=== PATIENT | female | born 1980 | race African-American/Black ===

== ENCOUNTER 2016-09-08 05:58 | Day surgery (SDC) | payer OTHER ==
[~2016-09-08] VITALS: Ht 165.1 cm; Wt 77.0 kg
[~2016-09-08 05:58] MED LIST: CHILD ASPIRIN81 M1 PO; FEOSOL325 MG PO; NAPROSYN500 MG PO; PRENATAL TABLE1 EAC3 PO; PRILOSEC OTC20 MG PO; TUMS500 MG PO; ZANTAC150 MG PO; ZOFRAN8 MG PO
[2016-09-08 06:30] LABS: EOSINOPHIL (%) 0.6 % (0-5); EOSINOPHIL COUNT 0.1 K/uL (0-0.3); HEMATOCRIT 36.2 % (36.0-46.0); IMMATURE GRANULOCYTE (%) 1.2 % (0.0-0.7); LYMPHOCYTE COUNT 1.8 K/uL (1.0-2.8); MCH 30.8 PG (29.0-34.0); MCHC 35.1 G/DL (30.0-36.0); MCV 87.9 FL (83-99); MEAN PLAT.VOLUME 10.6 uM^3 (9.5-12.4); MONOCYTE (%) 9.7 % (3-12); MONOCYTE COUNT 0.8 K/uL (0-0.8); NEUTROPHIL (%) 65.6 % (45-76); NEUTROPHIL COUNT 5.2 K/uL (1.8-6.4); PLATELET COUNT 194 K/uL (156-360); RBC DIS.WIDTH-CV 13.7 % (11.8-14.6); RBC DIS.WIDTH-SD 42.6 % (39-53); RED BLOOD COUNT 4.12 M/uL (3.80-5.20)
[2016-09-08 06:47] VITALS: BP 116/58
== END 2016-09-08 08:10 | disposition home or self-care (01) ==
LOC: SDC 05:58 → 2WEST 07:15 → SDC 10:55
PROVIDERS: Obstetrics & Gynecology
PROC: 0UP Female Reproductive System, Removal (ICD-10-PCS; principal; 2016-09-08)
DX: O34.33 Maternal care for cervical incompetence, third trimester (principal); O99.89 Other specified diseases and conditions complicating pregnancy, childbirth and the puerperium; O32.1XX0 Maternal care for breech presentation, not applicable or unspecified; Z53.29 Procedure and treatment not carried out because of patient's decision for other reasons; Z3A.36 36 weeks gestation of pregnancy
CPT/HCPCS: 59025; 85025; G0378

== ENCOUNTER 2016-09-17 07:05 | Inpatient (IN) | payer OTHER ==
[2016-09-17] VITALS (8 sets, daily range): BP systolic 114–130; BP diastolic 61–74
[~2016-09-17] VITALS: Ht 165.1 cm; Wt 77.0 kg
[2016-09-17 08:23] LABS: EOSINOPHIL (%) 0.6 % (0-5); EOSINOPHIL COUNT 0.1 K/uL (0-0.3); HEMATOCRIT 35.1 % (36.0-46.0); IMMATURE GRANULOCYTE (%) 0.8 % (0.0-0.7); IMMATURE GRANULOCYTE COUNT 0.1 K/uL; LYMPHOCYTE COUNT 1.5 K/uL (1.0-2.8); MCH 30.1 PG (29.0-34.0); MCHC 33.9 G/DL (30.0-36.0); MCV 88.9 FL (83-99); MEAN PLAT.VOLUME 11.1 uM^3 (9.5-12.4); MONOCYTE (%) 8.3 % (3-12); MONOCYTE COUNT 0.6 K/uL (0-0.8); NEUTROPHIL (%) 70.7 % (45-76); NEUTROPHIL COUNT 5.5 K/uL (1.8-6.4); PLATELET COUNT 170 K/uL (156-360); RBC DIS.WIDTH-CV 13.6 % (11.8-14.6); RBC DIS.WIDTH-SD 44.2 % (39-53); RED BLOOD COUNT 3.95 M/uL (3.80-5.20); WHITE BLOOD COUNT 7.7 K/uL (4.1-10.2)
[2016-09-17] MEDS ORDERED: IBUPROFEN800 MG PO (11:00)
[2016-09-17] MEDS ORDERED: ENDOCET 5-3251 EACH PO (11:00)
[2016-09-18 03:03] VITALS: BP 99/57
[2016-09-18 06:46] LABS: EOSINOPHIL (%) 0.2 % (0-5); HEMATOCRIT 28.3 % (36.0-46.0); IMMATURE GRANULOCYTE (%) 0.4 % (0.0-0.7); LYMPHOCYTE COUNT 1.4 K/uL (1.0-2.8); MCH 30.6 PG (29.0-34.0); MCHC 34.3 G/DL (30.0-36.0); MCV 89.3 FL (83-99); MEAN PLAT.VOLUME 10.9 uM^3 (9.5-12.4); MONOCYTE (%) 11.2 % (3-12); MONOCYTE COUNT 1.1 K/uL (0-0.8); NEUTROPHIL (%) 73.8 % (45-76); NEUTROPHIL COUNT 7.4 K/uL (1.8-6.4); PLATELET COUNT 169 K/uL (156-360); RBC DIS.WIDTH-CV 13.7 % (11.8-14.6); RBC DIS.WIDTH-SD 43.9 % (39-53); RED BLOOD COUNT 3.17 M/uL (3.80-5.20); WHITE BLOOD COUNT 10.1 K/uL (4.1-10.2)
[2016-09-18 08:05] VITALS: BP 104/52
[2016-09-18 11:12] VITALS: BP 106/53
[2016-09-18 15:03] VITALS: BP 108/54
[2016-09-18 19:39] VITALS: BP 121/56
[2016-09-19 02:34] VITALS: BP 118/56
[2016-09-19 07:38] VITALS: BP 116/59
[2016-09-19 14:50] VITALS: BP 111/53
[2016-09-19 23:00] VITALS: BP 103/63
[2016-09-20 08:25] VITALS: BP 114/59
[2016-09-20 15:06] VITALS: BP 115/67
[2016-09-20 23:16] VITALS: BP 151/76
[2016-09-21 07:45] VITALS: BP 119/69
[2016-09-21 15:25] VITALS: BP 112/64
== END 2016-09-21 22:00 | disposition home or self-care (01) | DRG 765 ==
LOC: 2WEST 07:05 → 2SOUTH 09:25 → 2WEST 09-21 22:00 → 2SOUTH 09-22 15:20
PROVIDERS: Obstetrics & Gynecology
DX: O32.1XX0 Maternal care for breech presentation, not applicable or unspecified (principal); O34.33 Maternal care for cervical incompetence, third trimester; O34.13 Maternal care for benign tumor of corpus uteri, third trimester; D25.9 Leiomyoma of uterus, unspecified; O34.43 Maternal care for other abnormalities of cervix, third trimester; D26.0 Other benign neoplasm of cervix uteri; O34.83 Maternal care for other abnormalities of pelvic organs, third trimester; D28.2 Benign neoplasm of uterine tubes and ligaments; O99.62 Diseases of the digestive system complicating childbirth; K21.9 Gastro-esophageal reflux disease without esophagitis; O99.824 Streptococcus B carrier state complicating childbirth; Z3A.39 39 weeks gestation of pregnancy; Z37.0 Single live birth; Z79.82 Long term (current) use of aspirin
CPT/HCPCS: 85025; 86850; 86900; 86901; J1100; J2274; J2405; J3010; J7120; S0028

== ENCOUNTER 2017-04-21 04:31 | Emergency (ER) | payer OTHER ==
[~2017-04-21] VITALS: Ht 167.6 cm; Wt 80.0 kg
[~2017-04-21 04:31] MED LIST changes: +ENDOCET 5-3251 EACH PO; +IBUPROFEN800 MG PO
[2017-04-21 05:26] LABS: CHLORIDE 107 mEq/L (99-109); POTASSIUM 3.6 mEq/L (3.7-5.4); SODIUM 140 mEq/L (136-147)
[2017-04-21 05:29] LABS: GLUCOSE 148 mg/dL (70-99)
[2017-04-21 05:30] LABS: ANION GAP 9 MEQ/L (2-14)
[2017-04-21 05:31] LABS: HEMATOCRIT 32.9 % (36.0-46.0); MCH 29.1 PG (29.0-34.0); MCV 85.5 FL (83-99); MEAN PLAT.VOLUME 10.5 uM^3 (9.5-12.4); PLATELET COUNT 221 K/uL (156-360); RBC DIS.WIDTH-CV 11.9 % (11.8-14.6); RBC DIS.WIDTH-SD 36.9 % (39-53); RED BLOOD COUNT 3.85 M/uL (3.80-5.20); TOTAL BILIRUBIN 0.3 mg/dL (0.0-1.0); WHITE BLOOD COUNT 6.7 K/uL (4.1-10.2)
[2017-04-21 05:32] LABS: ALKALINE PHOSPHATASE 69 IU/L (3-129); GFR ESTIMATE (CALCULATED) > 59 mL/min/
[2017-04-21 05:33] LABS: UREA NITROGEN (BUN) 15 mg/dL (9-23)
[2017-04-21 05:36] LABS: LIPASE 48 U/L (1.0-51.0)
[2017-04-21 05:42] LABS: QUANTITATIVE HCG < 4.0 MIU/ML
[2017-04-21 05:45] LABS: ADD MIUA? YES; BILIRUBIN NEGATIVE; BLOOD NEGATIVE; COLOR YELLOW ((YELLOW)); GLUCOSE (STRIP) NEGATIVE; KETONES NEGATIVE; LEUKOCYTES TRACE; NITRITE NEGATIVE; PROTEIN (STRIP) NEGATIVE; UROBILINOGEN 0.2 MG/DL (0.2-1.0)
[2017-04-21 05:59] LABS: BACTERIA NONE SEEN /HPF; EPITHELIAL CELLS 1+ /HPF; MUCUS NONE SEEN /LPF; RED BLOOD CELLS 0-5 /HPF (0-5); UCUL ADDED? NO; WHITE BLOOD CELLS 0-5 /HPF (0-5)
[2017-04-21] MEDS ORDERED: NORCO 5/3251 TABLET PO (06:28)
[2017-04-21] MEDS ORDERED: ZOFRAN8 MG PO (06:28)
[2017-04-21 07:12] VITALS: BP 131/79
== END 2017-04-21 07:22 | disposition home or self-care (01) ==
LOC: EME 04:31
PROVIDERS: Emergency Medicine
DX: K80.20 Calculus of gallbladder without cholecystitis without obstruction (principal); R06.00 Dyspnea, unspecified
CPT/HCPCS: 76705; 80053; 81003; 83690; 84702; 85027; 93005; 99281; 99285; J2270; J2405; J7030

== ENCOUNTER 2017-09-21 19:05 | Emergency (ER) | payer OTHER ==
[~2017-09-21] VITALS: Ht 167.6 cm; Wt 80.1 kg
[~2017-09-21 19:05] MED LIST changes: +NORCO 5/3251 TABLET PO
[2017-09-21 19:40] LABS: HEMATOCRIT 34.1 % (36.0-46.0); HEMOGLOBIN 11.7 G/DL (11.9-15.5); MCH 29.1 PG (29.0-34.0); MCHC 34.3 G/DL (30.0-36.0); MCV 84.8 FL (83-99); PLATELET COUNT 263 K/uL (156-360); RBC DIS.WIDTH-CV 12.9 % (11.8-14.6); RBC DIS.WIDTH-SD 38.9 % (39-53); RED BLOOD COUNT 4.02 M/uL (3.80-5.20); WHITE BLOOD COUNT 12.1 K/uL (4.1-10.2)
[2017-09-21 19:53] LABS: CHLORIDE 105 mEq/L (99-109); POTASSIUM 3.4 mEq/L (3.7-5.4); SODIUM 135 mEq/L (136-147)
[2017-09-21 19:55] LABS: GLUCOSE 124 mg/dL (70-99)
[2017-09-21 19:59] LABS: CREATININE 0.7 mg/dL (0.6-1.3); GFR ESTIMATE (CALCULATED) > 59 mL/min/
[2017-09-21 20:00] LABS: UREA NITROGEN (BUN) 7 mg/dL (9-23)
[2017-09-21 20:01] LABS: TROP-I INTERPRETATION NEGATIVE; TROPONIN-I < 0.01 ng/mL (0.0-0.30)
[2017-09-21 20:02] LABS: LIPASE 26 U/L (1.0-51.0)
[2017-09-21 20:07] LABS: QUANTITATIVE HCG 2805.6 MIU/ML
[2017-09-21 21:41] LABS: ALBUMIN 4.6 g/dL (3.2-4.8)
[2017-09-21 21:43] LABS: TOTAL PROTEIN 7.7 g/dL (6.4-8.3)
[2017-09-21 21:45] LABS: TOTAL BILIRUBIN 1.5 mg/dL (0.0-1.0)
[2017-09-21 21:46] LABS: ALKALINE PHOSPHATASE 56 IU/L (3-129)
[2017-09-21 21:49] LABS: ALT (GPT) 25 IU/L (3-49); AST (GOT) 16 IU/L (2-34); DIRECT BILIRUBIN 0.6 mg/dL (0.0-0.3)
[2017-09-21] MEDS ORDERED: ZOFRAN4 MG PO (23:14)
[2017-09-21] MEDS ORDERED: PERCOCET 5/31 TABLET PO (23:14)
[2017-09-22 00:08] VITALS: BP 105/57
== END 2017-09-22 00:21 | disposition home or self-care (01) ==
LOC: EME 19:05
DX: O99.619 Diseases of the digestive system complicating pregnancy, unspecified trimester (principal); K80.20 Calculus of gallbladder without cholecystitis without obstruction; O99.019 Anemia complicating pregnancy, unspecified trimester; Z3A.00 Weeks of gestation of pregnancy not specified
CPT/HCPCS: 76705; 80048; 80076; 81003; 83690; 84484; 84702; 85027; 93005; 99281; 99285; J2405; J3010; J7030

== ENCOUNTER 2017-11-18 06:01 | Day surgery (SDC) | payer OTHER ==
[~2017-11-18] VITALS: Ht 167.6 cm; Wt 70.3 kg
[~2017-11-18 06:01] MED LIST changes: +OMEPRAZOLE40 M1 PO; +PERCOCET 5/31 TABLET PO; +ZOFRAN4 MG PO
[2017-11-18 07:07] VITALS: BP 115/60
[2017-11-18] MEDS ORDERED: PERCOCET 5/31 TABLET PO (10:03)
[2017-11-18] MEDS ORDERED: COLACE100 MG PO (10:03)
[2017-11-18 11:55] VITALS: BP 122/71
[2017-11-18 12:40] VITALS: BP 110/63
[2017-11-18 13:37] VITALS: BP 113/65
== END 2017-11-18 13:35 | disposition home or self-care (01) ==
LOC: SDC 06:01
DX: K80.10 Calculus of gallbladder with chronic cholecystitis without obstruction (principal); K66.0 Peritoneal adhesions (postprocedural) (postinfection); K21.9 Gastro-esophageal reflux disease without esophagitis; D50.9 Iron deficiency anemia, unspecified; Z82.49 Family history of ischemic heart disease and other diseases of the circulatory system; Z83.49 Family history of other endocrine, nutritional and metabolic diseases
CPT/HCPCS: 88304; J0690; J1100; J1170; J1885; J2250; J2405; J2710; J7643; Q0175; S0020